=== PATIENT | male | born 2000 | race Caucasian/White ===

== ENCOUNTER 2024-11-21 15:35 | Inpatient (IN) ==
[2024-11-21 16:09] LABS: Basophils # (auto) 0.05 K/uL (0.00-0.20); Basophils % (auto) 0.5 %; Eosinophils # (auto) 0.01 K/uL (0.00-0.50); Eosinophils % (auto) 0.1 %; Hematocrit (blood only) 42.8 % (42.0-52.0); Hemoglobin 15.1 g/dl (14.0-18.0); Immature Granulocytes # (auto) 0.22 K/uL (0.01-0.20); Immature Granulocytes % (auto) 2.1 %; Lymphocytes # (auto) 2.71 K/uL (1.20-3.40); Lymphocytes % (auto) 25.3 %; Mean Corpuscular Hemoglobin 30.2 pg (25.0-34.0); Mean Corpuscular Hgb Conc 35.3 g/dL (32.0-36.0); Mean Corpuscular Volume 85.6 fL (80.0-100.0); Mean Platelet Volume 8.4 fL (9.4-12.4); Monocytes # (auto) 0.71 K/uL (0.11-0.59); Monocytes % (auto) 6.6 %; Neutrophils # (auto) 7.02 K/uL (1.40-6.50); Neutrophils % (auto) 65.4 %; Platelet Count 341 K/uL (130-400); RDW Coefficient of Variation 12.1 % (11.5-14.5); RDW Standard Deviation 38.1 fL (36.4-46.3); White Blood Count 10.72 K/ul (4.8-10.8)
[2024-11-21 16:25] LABS: Albumin Globulin Ratio 1.8 (0.9-2); Albumin Level 4.3 gm/dl (3.4-5.0); BUN Creatinine Ratio 11.6 (10-20); Bilirubin,Total 0.6 mg/dl (0.2-1.0); Creatinine Clr Calc Pharmacy 125.5 ml/min; Globulin 2.4 gm/dl (2.5-4.0); Potassium 3.8 mmol/L (3.5-5.1); Total Protein 6.7 gm/dl (6.0-8.3)
[2024-11-21] MEDS: SODIUM CHLORIDE 0.9% 1,000 ML IV ONE ×2 (16:34→18:54)
--- NOTE | 2024-11-21 16:37 | XRay Report ---
Clinical History: Fever Technique: 2 frontal views of the chest were obtained Findings: There are no confluent pulmonary infiltrates. The heart size is within normal limits. No pleural effusion or pneumothorax is seen. There is no definite pulmonary nodule. No fracture is noted. No foreign body is seen Impression: No active disease Electronically signed by Rock Hodges 11-21-2024 4:37 PM
--- NOTE | 2024-11-21 17:00 | Emergency Department Note ---
Impression & Plan Fever, Headache, Bicuspid aortic valve, Elevated liver enzymes ED Provider Note NAME: ROCK MENDENHALL AGE: 23 SEX: M : 2000 ARRIVES VIA: Walk-In INFORMANT: [Patient] ED PROVIDER(S): [Catalino Vines MD] CHIEF COMPLAINT: Flulike symptoms, headache HISTORY OF PRESENT ILLNESS: The patient is a 23-year-old male with a bicuspid aortic valve who presents to the ER with fever for 10 days. He also complains of a headache that is worse with position change. He has not had cough or congestion or shortness of breath. No sore throat. No urinary complaints. No vomiting diarrhea. No tick bites. Patient has already had strep testing, COVID, flu, RSV testing, Lyme testing, it is all returned negative. The patient presents with ongoing symptoms. He took Tylenol about 2 hours ago. PMHx/PSHx/Social Hx: See Below PHYSICAL EXAM: GENERAL: Patient is in no acute distress. HEENT: No acute trauma, normocephalic atraumatic, mucous membranes moist, no nasal congestion. No throat erythema or exudate. NECK: No stridor, no adenopathy, no meningismus, trachea is midline. LUNGS: Clear to auscultation bilaterally, no wheeze, no rhonchi, breath sounds equal. HEART: Mildly tachycardic, subtle systolic murmur, regular rhythm. ABDOMEN: Soft, nontender, no peritonitis. EXTREMITIES: No cyanosis, full range of motion of all the joints without pain or difficulty. NEUROLOGIC: Oriented x 3, no acute motor or sensory deficits, no focal weakness. SKIN: No jaundice, no diaphoresis. DIFFERENTIAL DIAGNOSIS: Meningitis, viral illness, Lyme disease, tickborne disease, pneumonia, bacteremia, endocarditis, among others. EMERGENCY DEPARTMENT PROCEDURES: Lumbar puncture: This procedure was performed by me. Risks and benefits of the procedure were discussed. Patient was placed seated on the stretcher. Lumbar landmarks were identified. Betadine was used for prep. Sterile drapes were applied. Using sterile technique, lidocaine was used to anesthetize the lumbar area. Using sterile technique, I attempted to access the spinal canal with a 20-gauge spinal needle. There were no complications. Patient tolerated the procedure well. Unfortunately, no fluid was obtained, the tap was dry. MEDICAL DECISION MAKING: There is no leukocytosis or concerning anemia. There is a normal platelet count. There is a bandemia present on the CBC differential. Sed rate was normal at 7. There was no electrolyte abnormality or renal failure. Lactic acid level was not elevated making severe sepsis unlikely. There were a few subtle liver enzyme elevations, the bilirubin was normal. Procalcitonin level was not elevated making serious bacterial infection less likely. Respiratory bio fire was positive for rhinovirus. Babesia and anaplasmosis screens were negative. Lyme disease testing was negative. Send out tick testing is pending. Ulster testing was negative. Brain CT showed no acute bleed or mass effect. Some chronic sinusitis was noted on CT imaging. Chest x-ray does not show pneumonia or CHF. On exam, the patient did not have meningismus but did complain of a headache with any movement. He was febrile. He did not seem toxic. I did attempt a lumbar puncture as noted above, I was unfortunately, unsuccessful. The patient received IV saline, 2 L. He was given IV Zofran, he received a second dose of IV Zofran as he became nauseated during the lumbar puncture. He received IV morphine for pain, he was given IV Ativan to help with relaxation for the lumbar puncture. He was given IV ceftriaxone as empiric antibiotic therapy. The patient presents with 10 days of fever. He has had several visits to providers already and no true diagnosis has been made. Unfortunately, I was unable to obtain spinal fluid to help with the diagnosis of potential meningitis. For now, given the circumstances, I do think a hospital stay is warranted. Observation, further workup, a lumbar puncture under fluoroscopy tomorrow could be performed. I did speak with the patient, I spoke with his parents. I did talk with the case management. The on-call hospitalist was consulted. Prior/Outside records/notes reviewed: None Imaging/x-ray results per my interpretation: Chest x-ray does not show pneumonia or CHF. Chronic Medical/Social conditions affecting care: None Care/Management discussed with: Case management, the on-call hospitalist. I did speak with the parents at bedside. Level of care consideration(s): After review of the information above and other included data: --I believe the patient requires escalation of care to admission DISPOSITION: Admission Past Med/Surg History Problem List Elevated liver enzymes (Acute) Bicuspid aortic valve (Acute) Headache (Acute) Fever (Acute) Medical History Bicuspid aortic valve SVT (supraventricular tachycardia) Social History Smoking Status: Never smoker Preferred Language: Norwegian Feels Safe at Home: Yes Allergies Allergies Allergy/AdvReac Type Severity Reaction Status Date / Time No Known Allergies Allergy Unverified 11/21/24 10:32 Home Meds Previous Rx's Medication Instructions Recorded amoxicillin 875 mg tablet 875 mg PO BID 10 days #20 tabs 11/21/24 Results & Data (ED) Vital Signs Vital Signs - 24 hr 11/21/24 15:38 11/21/24 16:01 11/21/24 16:07 Temperature 38.3 C H Temperature Source Temporal Artery Scan Pulse Rate 104 H 87 Pulse Rate [Left Apical] Respiratory Rate 20 Respiratory Effort / Characteristics Non-Labored Spontaneous Respiratory Depth Normal Respiratory Pattern Regular Blood Pressure 123/69 119/74 Blood Pressure [Left Arm] Blood Pressure Mean 87 89 Blood Pressure Mean [Left Arm] Blood Pressure Position Sitting Pulse Oximetry 98 Oxygen Delivery Method Room Air Sepsis Recent Fever Within 48 Hours Yes Sepsis New/Unexplained Change in Mental Status N/A Sepsis Action Taken by Nursing No Action Required 11/21/24 16:30 11/21/24 16:45 11/21/24 17:00 Temperature Temperature Source Pulse Rate 84 74 Pulse Rate [Left Apical] Respiratory Rate 18 25 H Respiratory Effort / Characteristics Respiratory Depth Respiratory Pattern Blood Pressure 102/61 Blood Pressure [Left Arm] Blood Pressure Mean 77 Blood Pressure Mean [Left Arm] Blood Pressure Position Pulse Oximetry 96 98 Oxygen Delivery Method Room Air Room Air Sepsis Recent Fever Within 48 Hours Sepsis New/Unexplained Change in Mental Status Sepsis Action Taken by Nursing 11/21/24 17:09 11/21/24 17:13 11/21/24 17:15 Temperature Temperature Source Pulse Rate 82 90 Pulse Rate [Left Apical] Respiratory Rate 22 Respiratory Effort / Characteristics Respiratory Depth Respiratory Pattern Blood Pressure 96/77 L Blood Pressure [Left Arm] Blood Pressure Mean 85 Blood Pressure Mean [Left Arm] Blood Pressure Position Pulse Oximetry 98 98 Oxygen Delivery Method Room Air Room Air Sepsis Recent Fever Within 48 Hours Sepsis New/Unexplained Change in Mental Status Sepsis Action Taken by Nursing 11/21/24 17:36 11/21/24 17:45 11/21/24 17:57 Temperature Temperature Source Pulse Rate 72 71 74 Pulse Rate [Left Apical] Respiratory Rate 21 25 H 22 Respiratory Effort / Characteristics Respiratory Depth Respiratory Pattern Blood Pressure Blood Pressure [Left Arm] Blood Pressure Mean Blood Pressure Mean [Left Arm] Blood Pressure Position Pulse Oximetry 98 96 97 Oxygen Delivery Method Room Air Room Air Room Air Sepsis Recent Fever Within 48 Hours Sepsis New/Unexplained Change in Mental Status Sepsis Action Taken by Nursing 11/21/24 18:00 11/21/24 18:12 11/21/24 18:21 Temperature Temperature Source Pulse Rate 57 L 92 H Pulse Rate [Left Apical] Respiratory Rate 23 21 Respiratory Effort / Characteristics Respiratory Depth Respiratory Pattern Blood Pressure 120/60 Blood Pressure [Left Arm] Blood Pressure Mean 74 Blood Pressure Mean [Left Arm] Blood Pressure Position Pulse Oximetry 96 98 Oxygen Delivery Method Room Air Room Air Sepsis Recent Fever Within 48 Hours Sepsis New/Unexplained Change in Mental Status Sepsis Action Taken by Nursing 11/21/24 18:39 11/21/24 18:45 11/21/24 19:09 Temperature Temperature Source Pulse Rate 71 81 Pulse Rate [Left Apical] 60 Respiratory Rate 17 22 20 Respiratory Effort / Characteristics Non-Labored Spontaneous Respiratory Depth Normal Respiratory Pattern Regular Blood Pressure Blood Pressure [Left Arm] 115/66 Blood Pressure Mean Blood Pressure Mean [Left Arm] 82 Blood Pressure Position Pulse Oximetry 98 97 99 Oxygen Delivery Method Room Air Room Air Room Air Sepsis Recent Fever Within 48 Hours Sepsis New/Unexplained Change in Mental Status Sepsis Action Taken by Nursing 11/21/24 19:12 11/21/24 19:24 11/21/24 19:36 Temperature Temperature Source Pulse Rate 62 71 70 Pulse Rate [Left Apical] Respiratory Rate 23 24 17 Respiratory Effort / Characteristics Respiratory Depth Respiratory Pattern Blood Pressure Blood Pressure [Left Arm] Blood Pressure Mean Blood Pressure Mean [Left Arm] Blood Pressure Position Pulse Oximetry 96 99 99 Oxygen Delivery Method Room Air Room Air Room Air Sepsis Recent Fever Within 48 Hours Sepsis New/Unexplained Change in Mental Status Sepsis Action Taken by Nursing 11/21/24 19:55 11/21/24 20:00 11/21/24 20:35 Temperature 39.0 C H Temperature Source Oral Pulse Rate 85 74 Pulse Rate [Left Apical] Respiratory Rate 22 Respiratory Effort / Characteristics Respiratory Depth Respiratory Pattern Blood Pressure 124/82 Blood Pressure [Left Arm] Blood Pressure Mean 96 Blood Pressure Mean [Left Arm] Blood Pressure Position Pulse Oximetry 98 Oxygen Delivery Method Room Air Sepsis Recent Fever Within 48 Hours Sepsis New/Unexplained Change in Mental Status Sepsis Action Taken by [facility]irement Medications Current Medication List: was personally reviewed by me Laboratory Data Attestation: I reviewed the patient's lab results. 11/21/24 15:51 11/21/24 15:51 Lab Results 11/21/24 11/21/24 11/21/24 Range/Units 15:51 16:35 16:45 WBC 10.72 (4.8-10.8) K/ul RBC 5.00 (4.70-6.10) M/uL Hgb 15.1 (14.0-18.0) g/dl Hct 42.8 (42.0-52.0) % MCV 85.6 (80.0-100.0) fL MCH 30.2 (25.0-34.0) pg MCHC 35.3 (32.0-36.0) g/dL RDW Std Deviation 38.1 (36.4-46.3) fL RDW Coeff of Romie 12.1 (11.5-14.5) % Plt Count 341 (130-400) K/uL MPV 8.4 L (9.4-12.4) fL Immature Gran % (Auto) 2.1 % Neut % (Auto) 65.4 % Lymph % (Auto) 25.3 % Ulster % (Auto) 6.6 % Eos % (Auto) 0.1 % Baso % (Auto) 0.5 % Neut # (Auto) 7.02 H (1.40-6.50) K/uL Lymph # (Auto) 2.71 (1.20-3.40) K/uL Ulster # (Auto) 0.71 H (0.11-0.59) K/uL Eos # (Auto) 0.01 (0.00-0.50) K/uL Baso # (Auto) 0.05 (0.00-0.20) K/uL Immature Gran # (Auto) 0.22 H (0.01-0.20) K/uL ESR 7 (0-15) mm/hr Sodium 138 (136-145) mmol/L Potassium 3.8 (3.5-5.1) mmol/L Chloride 104 (98-107) mmol/L Carbon Dioxide 28 (21-32) mmol/L Anion Gap 6 (3-11) BUN 13 (6-23) mg/dl Creatinine 1.12 (0.6-1.4) mg/dl Est Cr Clr Drug Dosing 125.5 ml/min eGFR 95.26 BUN/Creatinine Ratio 11.6 (10-20) Glucose 99 (70-99(Fasting)) mg/dl Lactate 1.5 (0.4-2.0) mmol/L Calcium 9.0 (8.6-10.3) mg/dl Total Bilirubin 0.6 (0.2-1.0) mg/dl AST 47 H (13-39) U/L ALT 59 H (7-52) U/L Alkaline Phosphatase 50 (34-104) U/L Total Protein 6.7 (6.0-8.3) gm/dl Albumin 4.3 (3.4-5.0) gm/dl Globulin 2.4 L (2.5-4.0) gm/dl Albumin/Globulin Ratio 1.8 (0.9-2) Procalcitonin < 0.02 (0-0.5) ng/ml Adenovirus (PCR) Not Detected (NotDetected) Anaplasma Smear See Comment Babesia Smear See Comment B. pertussis DNA (PCR) Not Detected (NotDetected) B.parapertussis DNA PCR Not Detected (NotDetected) Lyme Disease Screen Negative (Negative) C. pneumoniae DNA (PCR) Not Detected (NotDetected) Coronavirus OC43 (PCR) Not Detected (NotDetected) Coronavirus HKU1 (PCR) Not Detected (NotDetected) Coronavirus 229E (PCR) Not Detected (NotDetected) SARS-CoV-2 (PCR) Not Detected (NotDetected) Coronavirus NL63 (PCR) Not Detected (NotDetected) Monoscreen Negative (Negative) Human Metapneumovir PCR Not Detected (NotDetected) Influenza Type A (PCR) Not Detected (NotDetected) Influenza Type B (PCR) Not Detected (NotDetected) M. pneumoniae (PCR) Not Detected (NotDetected) Parainfluenza 1 (PCR) Not Detected (NotDetected) Parainfluenza 2 (PCR) Not Detected (NotDetected) Parainfluenza 3 (PCR) Not Detected (NotDetected) Parainfluenza 4 (PCR) Not Detected (NotDetected) RSV (PCR) Not Detected (NotDetected) Entero/Rhino (PCR) DETECTED A (NotDetected) Administered Medications Discontinued Medications Dexamethasone (Dexamethasone Sod Inj 4 Mg/Ml Vial) 10 mg IV NOW STA Stop: 11/21/24 20:30 Last Admin: 11/21/24 20:53 Dose: 10 mg Documented By: JAGDISH Sodium Chloride (Nss) 1,000 mls @ 999 mls/hr IV .Q1H1M ONE Stop: 11/21/24 17:24 Last Infusion: 11/21/24 18:00 Dose: Infused Documented By: Admin: 11/21/24 16:34 Dose: 999 mls/hr Documented By: LIZBETH Sodium Chloride (Nss) 1,000 mls @ 999 mls/hr IV .Q1H1M ONE Stop: 11/21/24 19:51 Last Infusion: 11/21/24 20:01 Dose: Infused Documented By: Admin: 11/21/24 18:54 Dose: 999 mls/hr Documented By: AVANI Ceftriaxone Sodium (Rocephin) 2,000 mg in 50 mls @ 100 mls/hr IV NOW STA Stop: 11/21/24 19:20 Last Infusion: 11/21/24 19:40 Dose: Infused Documented By: Admin: 11/21/24 19:05 Dose: 100 mls/hr Documented By: AVANI Lidocaine HCl (Lidocaine 1% Local 20 Ml Vial) 20 ml INFIL NOW ONE Stop: 11/21/24 17:01 Last Admin: 11/21/24 18:52 Dose: 20 ml Documented By: CARLIE Lorazepam (Lorazepam 2 Mg/1 Ml Vial) 0.5 mg IV NOW STA Stop: 11/21/24 16:59 Last Admin: 11/21/24 18:16 Dose: 0.5 mg Documented By: SONI Morphine Sulfate (Morphine Sulfate 4 Mg/Ml 1 Ml Carp\Vial) 4 mg IV NOW STA Stop: 11/21/24 16:59 Last Admin: 11/21/24 17:32 Dose: 4 mg Documented By: LIZBETH Ondansetron HCl (Ondansetron Inj 2 Mg/Ml 2 Ml Vial) 4 mg IV NOW STA Stop: 11/21/24 16:59 Last Admin: 11/21/24 17:33 Dose: 4 mg Documented By: LIZBETH Ondansetron HCl (Ondansetron Inj 2 Mg/Ml 2 Ml Vial) 4 mg IV NOW STA Stop: 11/21/24 18:57 Last Admin: 11/21/24 19:05 Dose: 4 mg Documented By: [facility] Imaging Data Radiologist's Impression: Chest X-Ray 11/21/24 15:43 Clinical History: Fever Technique: 2 frontal views of the chest were obtained Findings: There are no confluent pulmonary infiltrates. The heart size is within normal limits. No pleural effusion or pneumothorax is seen. There is no definite pulmonary nodule. No fracture is noted. No foreign body is seen Impression: No active disease Electronically signed by Rock Hodges 11-21-2024 4:[address] 11/21/24 16:58 Clinical History: Headache. Technique: Axial computed tomography images were obtained of the brain from the vertex to the skull base without intravenous contrast. Findings: There is no sign of intracranial hemorrhage. There is normal antony-white matter differentiation with no sign of acute or old infarction. No midline shift or other form of herniation is identified. There is no hydrocephalus. No obvious mass lesion is seen on this noncontrast examination. There is a mucus retention cyst in the right maxillary sinus. The mastoid air cells appear clear Impression: 1. Normal-appearing brain 2. Chronic sinusitis Electronically signed by Rock Hodges 11-21-2024 5:40 PM Discharge Plan Visit Data Chief Complaint: Flu Like Symptoms Stated Complaint: FEVER, HEADACHES ED Provider: Catalino Vines Discharge Problem: Fever, Headache, Bicuspid aortic valve, Elevated liver enzymes Patient Disposition: Admitted As Inpatient Condition: Fair Forms Stand Alone Forms: [facility], Important Visit Information Prescriptions Prescriptions: No Action amoxicillin 875 mg tablet 875 mg PO BID 10 Days Qty: 20 0RF Referrals [facility]errals: [facility] [Primary Care Provider] - Discharge Problem: Fever Qualifiers: Fever type: unspecified Qualified Code(s): R50.9 - Fever, unspecified Headache Qualifiers: Headache type: unspecified Headache chronicity pattern: acute headache I ntractability: intractable Qualified Code(s): R51.9 - Headache, unspecified
[2024-11-21] MEDS: MoRPHine SULFATE 4 MG/ML 1 ML CARP\\VIAL IV STA (17:32)
[2024-11-21] MEDS: ONDANSETRON INJ 2 MG/ML 2 ML VIAL IV STA ×2 (17:33→19:05)
--- NOTE | 2024-11-21 17:40 | CT Scan Report ---
Clinical History: Headache. Technique: Axial computed tomography images were obtained of the brain from the vertex to the skull base without intravenous contrast. Findings: There is no sign of intracranial hemorrhage. There is normal antony-white matter differentiation with no sign of acute or old infarction. No midline shift or other form of herniation is identified. There is no hydrocephalus. No obvious mass lesion is seen on this noncontrast examination. There is a mucus retention cyst in the right maxillary sinus. The mastoid air cells appear clear Impression: 1. Normal-appearing brain 2. Chronic sinusitis Electronically signed by Rock Hodges 11-21-2024 5:40 PM
[2024-11-21 17:49] LABS: Adenovirus PCR Not Detected (NotDetected); Bordetella parapertussis PCR Not Detected (NotDetected); Bordetella pertussis PCR Not Detected (NotDetected); Chlamydia pneumoniae PCR Not Detected (NotDetected); Coronavirus 229E PCR Not Detected (NotDetected); Coronavirus CoV-2 (COVID19)PCR Not Detected (NotDetected); Coronavirus HKU1 PCR Not Detected (NotDetected); Coronavirus NL63 PCR Not Detected (NotDetected); Coronavirus OC43PCR Not Detected (NotDetected); Human Metapneumovirus PCR Not Detected (NotDetected); Influenza A PCR Not Detected (NotDetected); Influenza B PCR Not Detected (NotDetected); Mycoplasma pneumoniae PCR Not Detected (NotDetected); Parainfluenza Virus 1 PCR Not Detected (NotDetected); Parainfluenza Virus 2 PCR Not Detected (NotDetected); Parainfluenza Virus 3 PCR Not Detected (NotDetected); Parainfluenza Virus 4 PCR Not Detected (NotDetected); Respiratory Syncytial VirusPCR Not Detected (NotDetected); Rhinovirus/Enterovirus PCR DETECTED (NotDetected)
[2024-11-21] MEDS: LORazepam 2 MG/1 ML VIAL IV STA (18:16)
[2024-11-21] MEDS: LIDOCAINE 1% LOCAL 20 ML VIAL INFIL ONE (18:52)
[2024-11-21] MEDS: cefTRIAXone SODIUM 2,000 MG/50 ML BAG IV STA (19:05)
[2024-11-21] MEDS ORDERED: POLYETHYLENE (MIRALAX) 17 GM PACK PO PRN (20:04)
[2024-11-21] MEDS ORDERED: ONDANSETRON INJ 2 MG/ML 2 ML VIAL IV PRN (20:04)
[2024-11-21] MEDS ORDERED: MELATONIN 3 MG TAB PO PRN (20:09)
[2024-11-21] MEDS ORDERED: VANCOMYCIN CONSULT ACTIVE PRN ×2 (20:29→21:56)
--- NOTE | 2024-11-21 20:38 | History & Physical Report ---
Date of Service November 21, 2024 Assessment & Plan (1) Headache: (2) Fever: (3) Rhinovirus: Plan 23 yo with h/o severe headaches and fever for 10 days, admitted to R/O meningitis after failed multiple LP attempts in ED. Clinically no s/o meningism,lab and imaging benign, however long history and persistent sx, worsened severe headaches on position change, and no downtrending sx warrant evaluation for meningitis. Hence admitted for IR guided LP and is under empiric antibiotics regimen now. No h.o recurrent infections in past rules out immunocompromised status clinically. #Fever and Severe BARNES *Possible meningitis - Sx for > 10 days now. - D/D: URI vs Sinusitis vs Meningitis vs lyme's - Clinically non toxic appearing, atypical for meningitis but can't r/o w/o LP. - No active URI sx from beginning of illness- hard to tell how much rhino virus has contributed. - No Other systemic symptoms to specify other D/Ds. - No h/o recurrent infection in past - Labs: CBC unremarkable Elevated neutrophils, monocytes, immature granulocytes borderline; could be 2/2 infection Procal: Negative LFT: Mildly out of range, can follow AM. [place]: negative RFT: WNL. Blood CS sent from ED. - Lyme: negative - Anaplasma, Babesia: Awaited - Imaging: Chest XR: Unremarkable CT head: No acute findings, Chronic sinusitis. Plan: Admit in med/surg Tele for observation IR guided diagnostic LP ordered for tomorrow. CSF analysis for: Cell count, glucose level, cytology, lyme, LDH, protein ordered. Empiric Abx: Ceftriaxone 2gm BID, Vancomycin 15 mg/ kg Q8 hr, Dexamethasone 10 mg Q6 hr/ Acyclovir Q 8H started. Would continue vanco/ dexa until meningitis is ruled out. Continuation of ceftriaxone is reasonable as Lyme's is another potential D/D and could present with false neg lyme's test. #Rhinovirus positive status - Incidental finding of Rhino virus positive status on Biofire. - Does not endorse active URi Sx. - Hard to tell how much rhino virus has contributed to his Headaches and fever. - Sx > 10 days supports Antibiotics need. - Otherwise symptomatic treatment. - Maintain hydration/ Tylenol/ Toradol for headache. Other chronic issues: 1. Bicuspid aortic valve: congenital, no s/o heart failure. Continue f.u with cardiology in outpatient. 2. H/O SVT: S/P ablation procedure in 2017, no recurrent Sx. Dispo: Admit in med/ surg Tele. DVT prophylaxis: Not indicated Code Status: Full. No IVF History of Present Illness Chief Complaint: Fever and BARNES for 10 days Primary Care Provider: [facility] Puneet is 23 yo healthy male with h/o Bicuspid aortic valve, SVTs S/P ablation done on 2016. He presented with severe headaches for few days, initially started with high grade fevers 10 days back. Initial 3 days, he did have fever only, max recorded 104 with no headaches, no URI Sx, No urine sx, no GI sx. Afterwards started having headaches, quite severe, throbbing type, more severe when he stands and changes position, but not when he rotates his head. He had visited family at [place] last Thursday, when he had severe headache, warranting him to go to urgent care. Migraine cocktail given there helped his headaches but he was suggested to take Tylenol at home, which did not help. Went to ED again on Thursday( 2 days back )-- blood works done-- revealed nothing. Lyme and viral panels were done, which was negative. This afternoon, he again had very severe headache, especially when he stands, not relieved at all with regular Tylenol, hence went to urgent care. They gave him Augmentin 1 dose and recommended discharge, however Puneet decided to visit our ED as HAs were very severe. Endorses h/o migraine in past, but headache were in frontal region. No regular or prophylactic medicine for migraine. No premonitory sx like nausea, blurring of vision in previous headache episodes and severity was very mild compared to current BARNES. No rashes anywhere, no joint pain, no vomiting, no blurring of vision. No h/o STDs, sexually active with single partner, No h/o use of Viagra. No h/o use of ointment for fissure. No h.o travel except from [place]. No known sick contact. After coming to ED, vitals were stable, with labs benign as well. CT head is unrevealing, Lumbar puncture was tried multiple times with failed attempts, hence Ceftriaxone was given STAT dose and our team was consulted. PMH: reviewed Drug and allergy : reviewed Code : Full Allergies Allergy/AdvReac Type Severity Reaction Status Date / Time No Known Allergies Allergy Unverified 11/21/24 10:32 Home Medications Medication Instructions Recorded Confirmed Type amoxicillin 875 mg tablet 875 mg PO BID 10 days #20 tabs 11/21/24 11/21/24 Rx Past Med/Surg History Problem List (Updated 11/21/24 @ 21:26 by Trudi Brewer MD) Rhinovirus Elevated liver enzymes (Acute) Bicuspid aortic valve (Acute) Headache (Acute) Fever (Acute) Medical History Bicuspid aortic valve SVT (supraventricular tachycardia) Social History Smoking Status: Never smoker Tobacco Type: Smokeless Tobacco (Dip or Chew) Cigarettes Per Day: Zyn pouches; Hx Alcohol Use: Yes Alcohol type: beer Hx Substance Use: No Preferred Language: Venezuelan Coning Machine Operator Required: No Beliefs That Will Affect Care: None Current Living Situation: Other Current Living Situation Comment: [place] apartment [place] roommates Feels Safe at Home: Yes Safety Concerns: Feels Safe At This Time Assistive Devices: Glasses Review of Systems Constitutional: no malaise Eyes: + loss of peripheral vision and + tunnel vision; no blind spots, no diplopia, no eye pain, no photophobia and no worsening vision Ear, Nose, Mouth, Throat: no ear pain, no ear discharge, no nasal congestion, no nasal obstruction and no dysphagia Respiratory: no cough, no chest congestion, no dyspnea, no dyspnea on exertion and no pain on inspiration Cardiovascular: no chest pain, no chest pain with activity, no dyspnea, no orthopnea and no palpitations Gastrointestinal: no abdominal pain, no bloating and no vomiting Genitourinary: no dysuria, no difficulty urinating, no urinary hesitancy, no penile discharge or no urinary urgency Musculoskeletal: no neck pain, no stiffness, no muscle weakness and no body aches Integumentary: no rash, no lesions and no unusual bruising Neurologic: no gait abnormality, no unsteadiness and no paresthesia Psychiatric: no behavioral changes Allergy / Immunological: + seasonal rhinorrhea Physical Exam Physical Exam: Constitutional: Well appearing, No acute distress, PILCCOD: Negative HEENT: Atraumatic, Normocephalic, No conjunctival injection CVS: S1 S2 no murmur, Regular Rhythm, no LE edema Respiratory: BL equal air entry with NVBS. No rhonchi, wheezes, or crackles. No increased work of breathing GI: Soft, Nondistended, Nontender, Normal Bowel sounds + MSK: No gross deformities noted Skin: Warm, Dry, No rashes Neuro: Alert, Oriented to TPP, No s/o Meningism, Neck movement not painful/ not stiff, Negative Kernig's and Brudzinski, No Focal deficit Psych: Mood and Affect congruent, Cooperative on exam Results & Data Results & Data Vital Signs (Past 12 Hours) Vital Signs Temp Pulse Pulse Resp BP BP Pulse Ox 11/21/24 20:00 74 22 124/82 98 11/21/24 19:55 85 11/21/24 19:36 70 17 99 11/21/24 19:24 71 24 99 11/21/24 19:12 62 23 96 11/21/24 19:09 60 20 115/66 99 11/21/24 18:45 81 22 97 11/21/24 18:39 71 17 98 11/21/24 18:21 92 H 21 98 11/21/24 18:12 57 L 23 96 11/21/24 18:00 120/60 11/21/24 17:57 74 22 97 11/21/24 17:45 71 25 H 96 11/21/24 17:36 72 21 98 11/21/24 17:15 90 98 11/21/24 17:13 96/77 L 11/21/24 17:09 82 22 98 11/21/24 17:00 74 25 H 98 11/21/24 16:45 84 18 96 11/21/24 16:30 102/61 11/21/24 16:07 87 11/21/24 16:01 119/74 11/21/24 15:38 38.3 C H 104 H 20 123/69 98 O2 Del Method 11/21/24 20:00 Room Air 11/21/24 19:55 11/21/24 19:36 Room Air 11/21/24 19:24 Room Air 11/21/24 19:12 Room Air 11/21/24 19:09 Room Air 11/21/24 18:45 Room Air 11/21/24 18:39 Room Air 11/21/24 18:21 Room Air 11/21/24 18:12 Room Air 11/21/24 18:00 11/21/24 17:57 Room Air 11/21/24 17:45 Room Air 11/21/24 17:36 Room Air 11/21/24 17:15 Room Air 11/21/24 17:13 11/21/24 17:09 Room Air 11/21/24 17:00 Room Air 11/21/24 16:45 Room Air 11/21/24 16:30 11/21/24 16:07 11/21/24 16:01 11/21/24 15:38 Room Air Code Status & VTE Plan VTE Prophylaxis Plan VTE Prophylaxis will be ordered: No Reason for no VTE drug order: Treatment not indicated Supervising Physician Co-Signing Physician Notes I personally saw and examined the patient. I independently reviewed the labs, EKG, imaging, problem list, medication list, past medical history and family history. I verified all singer points and agree with resident physician Dr Melissa Brewer MD with the following exceptions and/or additions: 24 year old male presents to the ER with rigors and headache for 10 days, with subjective fever (max 104 degrees Fahrenheit) for 7 days. No change in mentation. Very weak. No urinary symptoms. O/E A&Ox3, acitvely having rigors, HS RRR, no murmurs, Chest CTAB, Abdo SNT, 5/5 power b/l extremities with normal sensation, CN 2-> 12 intact A/P Fever / rigors - unknown cause but given headache with fever even without nuchal rigidity meningitis is being considered as duration and severity appears beyond that of RSV. Unfortunately unable to obtain LP in the ER despite multiple attempts and will be done under fluro tomorrow. Normal CXR. UA pending collection. Monitor LFTs with AM labs, will also add CK to check for rhabdo. Resident Activity Tracking Resident Involvement: Resident Care Provided Care Provided: Adult Hospital Medicine (1) Headache Headache chronicity pattern: acute headache Headache type: unspecified Intractability: intractable Qualified Code(s): R51.9 - Headache, unspecified (2) Fever Fever type: unspecified Qualified Code(s): R50.9 - Fever, unspecified
[2024-11-21] MEDS: DEXAMETHASONE SOD INJ 4 MG/ML VIAL IV STA (20:53)
[2024-11-21] MEDS: FAMOTIDINE 20MG/5ML IV PUSH IV ONE (21:12)
[2024-11-21] MEDS: FAMOTIDINE 20MG IV PUSH 20 MG/5 ML SYR IV STA (21:20)
[2024-11-21] MEDS ORDERED: DEXAMETHASONE SOD INJ 4 MG/ML VIAL IV SCH (21:56)
[2024-11-21] MEDS: VANCOMYCIN HCL 2,000 MG in SODIUM CHLORIDE 0.9% 500 ML IV ONE (22:12)
[2024-11-21] MEDS: ACYCLOVIR SOD 850 MG in DEXTROSE 5% 250 ML IV STA (22:15)
[2024-11-21] MEDS: KETOROLAC TROMETHAMINE 15 MG/ML VIAL IV PRN (22:48)
[2024-11-21] MEDS: ACETAMINOPHEN 500 MG TAB PO PRN (23:31)
[2024-11-22] MEDS: dexAMETHasone 10 MG in SYRINGE 0 ML IV SCH (03:10)
--- NOTE | 2024-11-22 04:51 | Billing Data ---
Date of Service November 21, 2024 Coding Level of Care Code 67974 INT INP/OBS CARE
[2024-11-22] MEDS: VANCOMYCIN HCL 1,250 MG in SODIUM CHLORIDE 0.9% 250 ML IV SCH (04:56)
[2024-11-22] MEDS: ACYCLOVIR SOD 850 MG in DEXTROSE 5% 250 ML IV SCH (04:56)
[2024-11-22 06:24] LABS: Basophils # (auto) 0.02 K/uL (0.00-0.20); Basophils % (auto) 0.3 %; Hematocrit (blood only) 39.1 % (42.0-52.0); Hemoglobin 13.7 g/dl (14.0-18.0); Immature Granulocytes # (auto) 0.16 K/uL (0.01-0.20); Immature Granulocytes % (auto) 2.2 %; Lymphocytes % (auto) 12.2 %; Mean Corpuscular Hemoglobin 30.2 pg (25.0-34.0); Mean Corpuscular Volume 86.1 fL (80.0-100.0); Mean Platelet Volume 8.6 fL (9.4-12.4); Monocytes # (auto) 0.11 K/uL (0.11-0.59); Monocytes % (auto) 1.5 %; Neutrophils % (auto) 83.8 %; Platelet Count 274 K/uL (130-400); RDW Coefficient of Variation 11.9 % (11.5-14.5); RDW Standard Deviation 37.7 fL (36.4-46.3); Red Blood Count 4.54 M/uL (4.70-6.10); White Blood Count 7.39 K/ul (4.8-10.8)
[2024-11-22] MEDS: cefTRIAXone SODIUM 2,000 MG/50 ML BAG IV SCH (06:30)
[2024-11-22 06:42] LABS: Albumin Globulin Ratio 1.8 (0.9-2); Albumin Level 4.1 gm/dl (3.4-5.0); Bilirubin,Total 0.8 mg/dl (0.2-1.0); Calcium 8.9 mg/dl (8.6-10.3); Creatinine Clr Calc Pharmacy 140.4 ml/min; Globulin 2.3 gm/dl (2.5-4.0); Potassium 4.1 mmol/L (3.5-5.1); Total Protein 6.4 gm/dl (6.0-8.3)
[2024-11-22 06:50] LABS: INR 1.2 (0.9-1.1); Prothrombin Time 12.4 Seconds (9.0-12.0)
--- NOTE | 2024-11-22 07:07 | Hospitalist Progress Note ---
Date of Service November 22, 2024 Assessment & Plan (1) Rhinovirus: (2) Elevated liver enzymes: (3) Bicuspid aortic valve: (4) Headache: (5) Fever: Plan Puneet is 24 Y O with PMH of Migraine, Bicuspid Aortic Valve and h/o SVT presented to ER with severe headaches and fever for 10 days, admitted to R/O meningitis after failed multiple LP attempts in ED. #Viral meningitis -Patient presented to ED with fever and headache for 10 days - Labs: CBC unremarkable Elevated neutrophils CSF WBC:1395; glucose: slight elevated; Protein: slightly above normal; PCR positive for enterovirus Procal : Negative; Lactate normal [place]: negative CMP: Liver enzymes mild elevated UA: Negative Respiratory Biofire test positive for Rhinovirus Chest Xray: Normal findings CT head: No acute abnormalities, suggestive of chronic sinusitis Blood culture: pending lyme test: negative Anaplasma, babesia : Negative; PCR pending -Discontinue Dexamethasone -Continue Ceftriaxone and vancomycin. Will see the clinical picture tomorrow and if nothing concomitant comes out, may DC abx. #Rhinovirus positive status - Respiratory Biofire positive for rhinovirus - Denies URI symptoms. Continue supportive measures Other chronic issues: 1. Bicuspid aortic valve: congenital, no s/o heart failure. Continue f.u with cardiology in outpatient. 2. H/O SVT: S/P ablation procedure in 2017, no recurrent Sx. Dispo: Admit in med/ surg Tele. DVT prophylaxis: Not needed, Encourage ambulation Code Status: Full. Admission and Anticipated Discharge Date Admission Date: November 21, 2024 Supervising Physician Co-Signing Physician Notes I personally examined the patient and verified all singer points of history and exam, discussed case, and agree with decision making with Dr Osman Webster feeling a bit better. Updated about LP findings. Mother at the bedsidediscussed with her as well. Vitals noted, in general he is awake and alert pleasant no distress. Lying flat in bed. HEENT normocephalic atraumatic mucous membranes moist. Breathing unlabored no accessory muscle use good effort. Skin without rashes pallor or icterus, although he is mildly flushed. Neuro without focal deficits. Mental status shows him to have good recent and remote recall normal mood and affect good judgment and insight. Labs and diagnostics reviewed. Meningitishas a quite significant white count raising concern for bacterial, but this is countered by the fact that his glucose is high and protein is barely above upper limits of normal, combined with the fact that he has had this febrile illness for about 10 days. Obviously continue antibiotic coverage for now, await PCR and culture findings, but I strongly suspect this is likely viral meningitismostly because his presentation clinically fits with that better and I would be surprised to see someone be able to tolerate an active bacterial meningitis for a week and a half. Again, continue empiric antibiotics until further studies and appreciate ID inputespecially given the significant CSF pleocytosis. Answered all questions the best my ability, patient and mother expressed satisfaction with care. Subjective Overnight events: Had fever and was sweating a lot. Afebrile since 1 AM Ongoing symptoms: This morning he reports significant improvement/. Headache a lot better rating 3-4/10. Afebrile since 1 AM. Denies nausea/vomiting, burning micturition , runny nose, sorethroat and chest pain New concerns: No any Review of Systems Review of Systems: As per HPI Physical Exam Constitutional: WD/WN, vitals as above well developed; no acute distress Eyes: PERRL, conjunctivae normal, anicteric sclerae ENMT: external ear and nose normal, oropharynx normal Ears: no hearing impairment Neck: trachea midline, no thyromegaly (Kernigs sign negative, Brudzinski sign negative) Respiratory: normal respiratory effort, lungs clear to auscultation normal respiratory effort and + respiratory distress; no labored breathing and no retractions Auscultation: lungs clear to auscultation bilaterally Cardiovascular: RRR, no murmur, no edema Rate/Rhythm: regular rate and regular rhythm Chest (Breasts): normal inspection/palpation of breasts Chest: normal inspection of chest Results & Data Results & Data Vital Signs (Past 12 Hours) Vital Signs Temp Pulse Pulse Pulse Resp BP BP 11/22/24 01:01 37.6 C H 11/21/24 22:45 38.3 C H 83 16 11/21/24 21:17 80 18 11/21/24 21:03 86 25 H 11/21/24 21:01 133/74 11/21/24 20:57 96 H 21 11/21/24 20:54 68 27 H 11/21/24 20:35 39.0 C H 11/21/24 20:30 122/75 11/21/24 20:27 59 L 26 H 11/21/24 20:24 61 27 H 11/21/24 20:00 74 22 124/82 11/21/24 19:55 85 11/21/24 19:36 70 17 11/21/24 19:24 71 24 11/21/24 19:12 62 23 11/21/24 19:09 60 20 115/66 BP Pulse Ox O2 Del Method 11/22/24 01:01 11/21/24 22:45 147/80 H 96 Room Air 11/21/24 21:17 125/68 98 Room Air 11/21/24 21:03 11/21/24 21:01 11/21/24 20:57 99 Room Air 11/21/24 20:54 99 Room Air 11/21/24 20:35 11/21/24 20:30 11/21/24 20:27 97 Room Air 11/21/24 20:24 98 Room Air 11/21/24 20:00 98 Room Air 11/21/24 19:55 11/21/24 19:36 99 Room Air 11/21/24 19:24 99 Room Air 11/21/24 19:12 96 Room Air 11/21/24 19:09 99 Room Air (4) Headache Headache chronicity pattern: acute headache Headache type: unspecified Intractability: intractable Qualified Code(s): R51.9 - Headache, unspecified (5) Fever Fever type: unspecified Qualified Code(s): R50.9 - Fever, unspecified
--- NOTE | 2024-11-22 08:21 | Pharmacy Report ---
Pharmacy PK ABX Note - Date of Service November 22, 2024 - Assessment and Plan Assessment 24 year old M receiving vancomycin/ceftriaxone/acyclovir for treatment of possible meningitis vs lyme's vs URI . Pertinent microbiologic data includes: blood cultures pending Day # 1 of antimicrobial therapy. Plan Vancomycin * Loading dose: 2000 mg IV x 1 * Maintenance dose: 1250 mg IV every 8 hours * Regimen is predicted to achieve target AUC/ЕКАТЕРИНА of 400-600 mg/L.hr * Trough level ordered for: 11/22/24 @ 0530 Pharmacy will continue to follow and will adjust dose/frequency as necessary. Thank you. Pharmacy has transitioned to AUC monitoring for vancomycin. AUC/ЕКАТЕРИНА is the preferred PK/PD target and is associated with decreased risk of nephrotoxicity compared to traditional trough targets.
--- NOTE | 2024-11-22 09:01 | Infectious Disease Consult ---
Date of Consultation November 22, 2024 Assessment & Plan (1) Fever: (2) Headache: (3) Rhinovirus: Plan 24yo M with h/o migraines, bicuspid aortic valve, SVT s/p ablation in 2016 who presented on 11/21 with severe headaches and fever. He initially had high grade fevers 10 days ago with Tmax 104. Headaches started a few days prior reported as throbbing, more severe when he stands up and changes position. He had seen his family in [place] on 11/16 and went to urgent care due to the severe headache and then twice on 11/19. He was given a migraine cocktail that helped, negative workup including Lyme and viral panel. On day of presentation, he again had very severe headaches, especially when he stands so went to urgent care. He was given 1 dose of augemntin and discharged home however he decided to come to the ED. No rashes, joint pain, vomiting, blurred vision. Denied sick contacts. In the ED, he was febrile to 39, vss. Initial labs with WBC 10.72, Cr wnl. AST 47, Cr 59. ESR 7, PCT < 0.02. RPP +rhino/enterovirus. Anaplasma and babesia smear neg, PCR pending. Lyme negative. CXR neg. CTH with chronic sinusitis. BCX in process. He was started on vanc/CTX/ACV with decadron. Attempted LP in ED but multiple failed attempts and plans for LP with IR. ID consulted 11/22. Ongoing fevers since last week. He does not have any meningeal signs on examination and I think bacterial meningitis is lower on the ddx. Also does not have encephalopathy and encephalitis also does not fit in the current clinical picture. Can keep on current therapy until results from LP and BCX. He does not have any other clear exposures, including vector-borne illnesses. I am going to add HIV given sexual history. I will hold off on additional tick-borne studies since he doesnt have exposures. No lymphadenopathy or pharyngitis to suggest mono. # Fever # Headaches # Rhinovirus/Enterovirus infection - I ordered HIV screen - f/u LP agree with current orders including VDRL, WNV, ME panel - will keep on vancomycin, CTX, and ACV while waiting or LP and de-escalate accordingly - f/u blood cx Will continue to follow. If questions or concerns, contact via [facility] or Infectious Disease Call Center . Kika Aguilar MD [facility], Division of Infectious Diseases Consultation Information Consultation was provided via telemedicine using two-way real-time interactive telecommunication between the patient and the telemedicine provider. For the duration of the visit, the provider was performing the assessment from a different facility than the patient. This includesuse of bluetooth stethoscope forauscultationperformed by the telepresenter that the telemedicine provider can hear if described in the physical exam. [place] contact information: Please call [facility] Call Center . (Phone Number For Physician Use Only) After establishing a telemedicine visit, patient was: Patient was verified with two unique identifiers, Patient/authorized rep acknowledged consent and understanding and Gave permission to continue telehealth session Time Spent with Patient: Initial => 75 min History of Present Illness Reason for Consultation: persistent high fevers, LP pending Attending Physician: Ron Marin DO History of Present Illness 24yo M with h/o migraines, bicuspid aortic valve, SVT s/p ablation in 2016 who presented on 11/21 with severe headaches and fever. He initially had high grade fevers 10 days ago with Tmax 104. Headaches started a few days prior reported as throbbing, more severe when he stands up and changes position. He had seen his family in [place] on 11/16 and went to urgent care due to the severe headache and then twice on 11/19. He was given a migraine cocktail that helped, negative workup including Lyme and viral panel. On day of presentation, he again had very severe headaches, especially when he stands so went to urgent care. He was given 1 dose of augemntin and discharged home however he decided to come to the ED. No rashes, joint pain, vomiting, blurred vision. Denied sick contacts. In the ED, he was febrile to 39, vss. Initial labs with WBC 10.72, Cr wnl. AST 47, Cr 59. ESR 7, PCT < 0.02. RPP +rhino/enterovirus. Anaplasma and babesia smear neg, PCR pending. Lyme negative. CXR neg. CTH with chronic sinusitis. BCX in process. He was started on vanc/CTX/ACV with decadron. Attempted LP in ED but multiple failed attempts and plans for LP with IR. FAVIAN consulted 11/22. On evaluation, patient reports that the fevers and headache started around the same time. His headaches feel different from his regular migraines and notes that it wraps around his head, worse with standing up. He notes fevers every day that are up to 101-102 and are reduced with Tylenol or ibuprofen. He denies having any sick contacts. 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 He has been in a monogamous relationship for 2 years with his girlfriend, with whom he is sexually active with, no condom use. Denies any penile discharge, rashes or lesions. He traveled to [place] in July but otherwise no other travel out of [facility]. He does visit his parents in [place]. No pets aside from a dog in [place] who he saw after he was already sick. No exposures on campus to animals. He does not go hiking or any outdoors activities including gardening or lawn care. Denies any tick or other bug bites. Has not had any recent URI symptoms including cough, sore throat, runny nose. No back pain, abdominal pain, diarrhea, bloody stools, joint pains/swelling, mouth sores, dental concerns, chest pain, SOB. Allergies Allergy/AdvReac Type Severity Reaction Status Date / Time No Known Allergies Allergy Unverified 11/21/24 10:32 Home Medications Medication Instructions Recorded Confirmed Type amoxicillin 875 mg tablet 875 mg PO BID 10 days #20 tabs 11/21/24 11/21/24 Rx Patient History Medical History Bicuspid aortic valve SVT (supraventricular tachycardia) Social History Smoking Status: Never smoker Tobacco Type: Smokeless Tobacco (Dip or Chew) Cigarettes Per Day: Zyn pouches; Hx Alcohol Use: Yes Alcohol type: beer Hx Substance Use: No Preferred Language: Mohawk Karate Black Belt Required: No Beliefs That Will Affect Care: None Current Living Situation: Other Current Living Situation Comment: college apartment with roommates Feels Safe at Home: Yes Safety Concerns: Feels Safe At This Time Assistive Devices: Glasses Review of System 10-point review of systems reviewed and are negative except for as above. Physical Exam Physical Exam: General: Awake, alert, no acute distress HEENT: NC/AT, EOMI, mmm, no lesions, good dentition Neck: supple, no cervical LAD Lungs: CTA bl, no w/c/r Heart: regular, nl S1/S2 Abdomen: soft, NT/ND Back: no spinal tenderness Ext: no LE edema, no LAD in axilla Skin: no rash Neuro: moving all extremities Results & Data Vital Signs (Past 12 Hours) Vital Signs Temp Pulse Pulse Pulse Resp BP BP 11/22/24 07:31 37.3 C 62 16 125/75 11/22/24 01:01 37.6 C H 11/21/24 22:45 38.3 C H 83 16 11/21/24 21:17 80 18 11/21/24 21:03 86 25 H 11/21/24 21:01 133/74 11/21/24 20:57 96 H 21 11/21/24 20:54 68 27 H BP Pulse Ox O2 Del Method 11/22/24 07:31 95 Room Air 11/22/24 01:01 11/21/24 22:45 147/80 H 96 Room Air 11/21/24 21:17 125/68 98 Room Air 11/21/24 21:03 11/21/24 21:01 11/21/24 20:57 99 Room Air 11/21/24 20:54 99 Room Air Laboratory Results Labs reviewed. Diagnostic Findings Imaging reviewed. (1) Fever Fever type: unspecified Qualified Code(s): R50.9 - Fever, unspecified (2) Headache Headache chronicity pattern: acute headache Headache type: unspecified Intractability: intractable Qualified Code(s): R51.9 - Headache, unspecified
[2024-11-22] MEDS: FAMOTIDINE 20MG IV PUSH 20 MG/5 ML SYR IV SCH (09:08)
[2024-11-22 09:53] LABS: Appearance Urine Clear (Clear); Bilirubin Urine Negative (Negative); Blood Urine Negative (Negative); Color Urine Yellow; Glucose Urine UA Negative (Negative); Ketones Urine Negative (Negative); Leukocyte Esterase Urine Negative (Negative); Nitrite Urine Negative (Negative); Protein Urine Negative (Negative); Specific Gravity Urine 1.008 (1.000-1.030); Urobilinogen Urine Negative (Negative); pH Urine 6.5 (4.5-7.5)
[2024-11-22 14:47] LABS: Appearance CSF Hazy; CSF Count Tube # 3; CSF Xanthrochromic No xanthochromia; Color CSF Colorless; Mononuclear WBC CSF Auto 95.6 %; Polynuclear WBC CSF Auto 4.4 %; White Blood Cell CSF Auto 1395 /uL (0-5)
[2024-11-22 14:52] LABS: Total Protein CSF 46.9 mg/dl (15-45)
[2024-11-22 15:05] LABS: Red Blood Cell CSF Manual 20 (0)
--- NOTE | 2024-11-22 15:32 | Fluoroscopy Report ---
LUMBAR PUNCTURE UNDER FLUOROSCOPY CLINICAL HISTORY: Fever/headache PROCEDURE: Procedure and risks were explained. Informed consent was obtained. A final timeout was com pleted. The patient was placed prone on the fluoroscopic exam table. The lower lumbar region was prep ped and draped in sterile fashion. 1% lidocaine was utilized for skin anesthesia. Utilizing fluoroscopic guidance, a 22-gauge Sprotte spinal needle was advanced into the intrathecal s pace at the L3-4 disc space level. Fluoroscopic spot images were obtained. Approximately 10 mL of uday udy CSF fluid was removed and sent to lab for analysis. The needle was removed and Band-Aid applied. The patient tolerated the procedure well. Vital signs will be monitored postprocedure. Fluoroscopy time 16 seconds. Study dosed 16.93 mGy. IMPRESSION: Lumbar puncture as above. Performed, dictated, and signed by Umer Logan PA-C; to be co-signed by Dr. Puneet Fay. Electronically signed by: Puneet Fay M.D. 11/22/2024 4:04 PM
[2024-11-22 16:03] LABS: Cryptococcus neoformans/ga PCR Not Detected (NotDetected); Cytomegalovirus PCR Not Detected (NotDetected); Escherichia coli K1 PCR Not Detected (NotDetected); Haemophilius influenzae PCR Not Detected (NotDetected); Herpes Simplex Virus 1 PCR Not Detected (NotDetected); Herpes Simplex Virus 2 PCR Not Detected (NotDetected); Human Herpes Virus 6 PCR Not Detected (NotDetected); Human Parechovirus PCR Not Detected (NotDetected); Listeria monocytogenes PCR Not Detected (NotDetected); Neisseria meningitidis PCR Not Detected (NotDetected); Streptococcus agalactiae PCR Not Detected (NotDetected); Streptococcus pneumoniae PCR Not Detected (NotDetected); Varicella Zoster Virus PCR Not Detected (NotDetected)
[2024-11-22 16:24] LABS: Enterovirus PCR DETECTED (NotDetected)
--- NOTE | 2024-11-22 16:39 | Billing Data ---
Date of Service November 22, 2024 Coding Level of Care Code 76878 SUB INP/OBS CARE
[2024-11-23 06:06] LABS: Basophils # (auto) 0.03 K/uL (0.00-0.20); Basophils % (auto) 0.2 %; Hematocrit (blood only) 42.1 % (42.0-52.0); Hemoglobin 14.6 g/dl (14.0-18.0); Immature Granulocytes # (auto) 0.32 K/uL (0.01-0.20); Immature Granulocytes % (auto) 2.3 %; Lymphocytes # (auto) 1.44 K/uL (1.20-3.40); Lymphocytes % (auto) 10.3 %; Mean Corpuscular Hemoglobin 29.9 pg (25.0-34.0); Mean Corpuscular Hgb Conc 34.7 g/dL (32.0-36.0); Mean Corpuscular Volume 86.1 fL (80.0-100.0); Mean Platelet Volume 8.6 fL (9.4-12.4); Monocytes # (auto) 0.88 K/uL (0.11-0.59); Monocytes % (auto) 6.3 %; Neutrophils # (auto) 11.26 K/uL (1.40-6.50); Neutrophils % (auto) 80.9 %; Platelet Count 283 K/uL (130-400); RDW Standard Deviation 37.9 fL (36.4-46.3); Red Blood Count 4.89 M/uL (4.70-6.10); White Blood Count 13.93 K/ul (4.8-10.8)
[2024-11-23 06:20] LABS: Albumin Globulin Ratio 1.8 (0.9-2); BUN Creatinine Ratio 15.7 (10-20); Bilirubin,Total 0.6 mg/dl (0.2-1.0); Calcium 9.2 mg/dl (8.6-10.3); Creatinine Clr Calc Pharmacy 157.8 ml/min; Globulin 2.2 gm/dl (2.5-4.0); Total Protein 6.2 gm/dl (6.0-8.3)
[2024-11-23] MEDS: VANCOMYCIN LEVEL ONE (07:23)
--- NOTE | 2024-11-23 07:50 | Infectious Disease Progress Nt ---
Date of Service November 23, 2024 Assessment & Plan (1) Enterovirus meningitis: (2) Fever: (3) Headache: Plan 24yo M with h/o migraines, bicuspid aortic valve, SVT s/p ablation in 2017 who presented on 11/21 with severe headaches and fever x 10 days. In the ED, he was febrile to 39, vss. Initial labs with WBC 10.72, Cr wnl. AST 47, Cr 59. ESR 7, PCT < 0.02. RPP +rhino/enterovirus. Anaplasma and babesia smear neg, PCR pending. Lyme negative. CXR neg. CTH with chronic sinusitis. BCX ngtd. He was started on vanc/CTX/ACV with decadron. Attempted LP in ED but multiple failed attempts and plans for LP with IR. ID consulted 11/22. S/p LP 11/22. CSF WBC 1395, predominantly mono, glucose 92, protein 46. CSF gram stain neg. ME panel +enterovirus. Enterovirus is one of the more common causes of viral meningitis and can be transmitted via fecal-oral route or through respiratory secretions. Treatment is supportive. Lillian therefore stopped acyclovir. CSF studies are not consistent with bacterial infection, gram stain is also negative, so Lillian also stopped antibiotics. Enteroviruses are contagious and household contacts should be advised to practice good hand hygiene. # Enterovirus meningitis # Fever, headaches - f/u HIV screen - f/u all CSF studies - f/u BCX - Lillian stopped vanc, CTX and acyclovir - supportive care for enterovirus - encourage hand hygiene and respiratory etiquette - avoid close contact particularly with those who are immunocompromised - may return to work/school once fever-free for at least 24hrs and feels well enough to return - f/u with PCP Will discontinue active follow up at this time. Please do not hesitate to reconsult the Infectious Diseases service as needed. Kika Aguilar MD [facility], Division of Infectious Diseases [employer]Connect: [phone] Admission and Anticipated Discharge Date Admission Date: November 21, 2024 Subjective This patient recommendation is based on a telemedicine consult request which was completed asynchronously through chart review and information provided by the primary physician. The patient was not seen or examined today. The evaluation is consultative in nature and all patient care and treatment decisions can either be accepted or rejected by the patient's primary hospital-based treating physician using their own independent medical judgment for their patient. Time Spent Reviewing Chart: 31+ minutes CSF studies with enterovirus Results & Data Vital Signs (Past 12 Hours) Vital Signs Temp Pulse Resp BP Pulse Ox O2 Del Method 11/23/24 07:13 36.3 C L 46 L 16 116/71 98 Room Air Laboratory Results Labs reviewed. (2) Fever Fever type: unspecified Qualified Code(s): R50.9 - Fever, unspecified (3) Headache Headache chronicity pattern: acute headache Headache type: unspecified Intractability: intractable Qualified Code(s): R51.9 - Headache, unspecified
--- NOTE | 2024-11-23 16:12 | Hospitalist Progress Note ---
Date of Service November 23, 2024 Assessment & Plan (1) Rhinovirus: (2) Elevated liver enzymes: (3) Bicuspid aortic valve: (4) Headache: (5) Fever: Plan Puneet is 24 Y O with PMH of Migraine, Bicuspid Aortic Valve and h/o SVT presented to ER with severe headaches and fever for 10 days, admitted to R/O meningitis after failed multiple LP attempts in ED. #Viral meningitis -Patient presented to ED with fever and headache for 10 days - Labs: CBC unremarkable Elevated neutrophils CSF WBC:1395; glucose: slight elevated; Protein: slightly above normal; PCR enterovirus Procal : Negative; Lactate normal [place]: negative CMP: Liver enzymes mild elevated UA: Negative Respiratory Biofire test positive for entero/Rhinovirus Chest Xray: Normal findings CT head: No acute abnormalities, suggestive of chronic sinusitis Blood culture: pending lyme test: negative Anaplasma, babesia : Negative; PCR pending -- Improving. Feels good today. We discussed hospital discharge versus ongoing observationbecause he felt better the day he got a "migraine cocktail" but then the next day everything rebounded terribly, he would like to be observed into tomorrow to ensure his improvement continues, which is quite reasonable. Discussed if his headache worsens to have nursing call us right away so that we can get on it with treatment, and otherwise as long as he continues to feel well tomorrow, likely discharge in the morning. Other chronic issues: 1. Bicuspid aortic valve: congenital, no s/o heart failure. Continue f.u with cardiology in outpatient. 2. H/O SVT: S/P ablation procedure in 2017, no recurrent Sx. Dispo: stable on medical DVT prophylaxis: Not needed, Encourage ambulation Code Status: Full. Admission and Anticipated Discharge Date Admission Date: November 21, 2024 Subjective feeling better. Headache much improved. Headache probably 23 out of 10. Able to walk around without worsening of headache. Able to walk and be upright without headache or dizziness. No fevers thus far today. Ate well. Dad at the bedside. Updated the best my ability and his satisfaction. Review of Systems Review of Systems: All systems reviewed & are unremarkable except as noted in HPI & below Physical Exam Physical Exam: In general he is awake alert oriented x 3 pleasant no distress. HEENT normocephalic atraumatic mucous membranes moist. Breathing unlabored no accessory muscle use good effort. Skin without rashes pallor or icterus. Neuro without focal deficits. Results & Data Results & Data Vital Signs (Past 12 Hours) Vital Signs Temp Pulse Resp BP Pulse Ox O2 Del Method 11/23/24 14:39 97.7 F 51 L 16 114/70 99 Room Air 11/23/24 07:13 97.3 F L 46 L 16 116/71 98 Room Air PG Care Time/CCT Total # of Minutes Spent Total Time Spent with Patient: Total time spent is greater than 50% in coordination of care (as documented) at patient's floor/unit and/or counseling patient: Coding Level of Care Code 02232 SUB INP/OBS CARE 3/50MIN Diagnoses Rhinovirus B34.8 Elevated liver enzymes R74.8 Bicuspid aortic valve Q23.81 Headache R51.9 Headache chronicity pattern: acute headache Headache type: unspecified Intractability: intractable Fever R50.9 Fever type: unspecified (4) Headache Headache chronicity pattern: acute headache Headache type: unspecified I ntractability: intractable Qualified Code(s): R51.9 - Headache, unspecified (5) Fever Fever type: unspecified Qualified Code(s): R50.9 - Fever, unspecified
--- NOTE | 2024-11-23 17:45 | Hospitalist Progress Note ---
Date of Service November 23, 2024 Assessment & Plan (1) Rhinovirus: (2) Elevated liver enzymes: (3) Bicuspid aortic valve: (4) Headache: (5) Fever: Plan Puneet is 24 Y O with PMH of Migraine, Bicuspid Aortic Valve and h/o SVT presented to ER with severe headaches and fever for 10 days, admitted to R/O meningitis after failed multiple LP attempts in ED. #Viral meningitis -Patient presented to ED with fever and headache for 10 days - Labs: CBC unremarkable Elevated neutrophils CSF WBC:1395; glucose: slight elevated; Protein: slightly above normal; PCR positive for enterovirus Procal : Negative; Lactate normal [place]: negative CMP: Liver enzymes mild elevated UA: Negative Respiratory Biofire test positive for Rhinovirus Chest Xray: Normal findings CT head: No acute abnormalities, suggestive of chronic sinusitis Blood culture: pending lyme test: negative Anaplasma, babesia : Negative; PCR pending -Discontinue Dexamethasone - Nephrology recommended.Discontinue Ceftriaxone and vancomycin. -Discontinue Acyclovir -Patient is afebrile and stable clinically. Gave option to go home today, but he wanted to stay for one more day to see for rebound headache. Hopefully back tomorrow if remains afebrile and clinically stable #Rhinovirus positive status - Respiratory Biofire positive for rhinovirus - Denies URI symptoms. Continue supportive measures Other chronic issues: 1. Bicuspid aortic valve: congenital, no s/o heart failure. Continue f.u with cardiology in outpatient. 2. H/O SVT: S/P ablation procedure in 2017, no recurrent Sx. Dispo: Admit in med/ surg Tele. DVT prophylaxis: Not needed, Encourage ambulation Code Status: Full. Admission and Anticipated Discharge Date Admission Date: November 21, 2024 Subjective Feeling much better. Headache much improved. Headache probably 23 out of 10. Able to walk around without worsening of headache. Able to walk and be upright without headache or dizziness. No fevers thus far today. Ate well. Dad at the bedside. Updated the best my ability and his satisfaction. Review of Systems Review of Systems: As per HPI Constitutional: no malaise Eyes: + loss of peripheral vision and + tunnel vision; no blind spots, no diplopia, no eye pain, no photophobia and no worsening vision Ear, Nose, Mouth, Throat: no ear pain, no ear discharge, no nasal congestion, no nasal obstruction and no dysphagia Respiratory: no cough, no chest congestion, no dyspnea, no dyspnea on exertion and no pain on inspiration Cardiovascular: no chest pain, no chest pain with activity, no dyspnea, no orthopnea and no palpitations Gastrointestinal: no abdominal pain, no bloating and no vomiting Genitourinary: no dysuria, no difficulty urinating, no urinary hesitancy, no penile discharge or no urinary urgency Musculoskeletal: no neck pain, no stiffness, no muscle weakness and no body aches Integumentary: no rash, no lesions and no unusual bruising Neurologic: no gait abnormality, no unsteadiness and no paresthesia Psychiatric: no behavioral changes Allergy / Immunological: + seasonal rhinorrhea Physical Exam Constitutional: WD/WN, vitals as above well developed; no acute distress Eyes: PERRL, conjunctivae normal, anicteric sclerae ENMT: external ear and nose normal, oropharynx normal Ears: no hearing impairment Neck: trachea midline, no thyromegaly (Kernigs sign negative, Brudzinski sign negative) Respiratory: normal respiratory effort, lungs clear to auscultation normal respiratory effort and + respiratory distress; no labored breathing and no retractions Auscultation: lungs clear to auscultation bilaterally Cardiovascular: RRR, no murmur, no edema Rate/Rhythm: regular rate and regular rhythm Chest (Breasts): normal inspection/palpation of breasts Chest: normal inspection of chest Results & Data Results & Data Vital Signs (Past 12 Hours) Vital Signs Temp Pulse Resp BP Pulse Ox O2 Del Method 11/23/24 07:13 36.3 C L 46 L 16 116/71 98 Room Air (4) Headache Headache chronicity pattern: acute headache Headache type: unspecified Intractability: intractable Qualified Code(s): R51.9 - Headache, unspecified (5) Fever Fever type: unspecified Qualified Code(s): R50.9 - Fever, unspecified
[2024-11-24 07:08] LABS: Basophils # (auto) 0.05 K/uL (0.00-0.20); Basophils % (auto) 0.5 %; Eosinophils # (auto) 0.01 K/uL (0.00-0.50); Eosinophils % (auto) 0.1 %; Hematocrit (blood only) 40.7 % (42.0-52.0); Hemoglobin 14.3 g/dl (14.0-18.0); Immature Granulocytes # (auto) 0.44 K/uL (0.01-0.20); Immature Granulocytes % (auto) 4.3 %; Lymphocytes # (auto) 3.74 K/uL (1.20-3.40); Lymphocytes % (auto) 36.2 %; Mean Corpuscular Hemoglobin 30.2 pg (25.0-34.0); Mean Corpuscular Hgb Conc 35.1 g/dL (32.0-36.0); Mean Platelet Volume 8.6 fL (9.4-12.4); Monocytes # (auto) 0.79 K/uL (0.11-0.59); Monocytes % (auto) 7.6 %; Neutrophils # (auto) 5.31 K/uL (1.40-6.50); Neutrophils % (auto) 51.3 %; Platelet Count 259 K/uL (130-400); RDW Coefficient of Variation 12.2 % (11.5-14.5); RDW Standard Deviation 38.5 fL (36.4-46.3); Red Blood Count 4.73 M/uL (4.70-6.10); White Blood Count 10.34 K/ul (4.8-10.8)
[2024-11-24 07:18] LABS: Creatinine Clr Calc Pharmacy 137.7 ml/min
--- NOTE | 2024-11-24 07:26 | Hospitalist Progress Note ---
Date of Service November 24, 2024 Assessment & Plan (1) Rhinovirus: (2) Elevated liver enzymes: (3) Bicuspid aortic valve: (4) Headache: (5) Fever: Plan Puneet is 24 Y O with PMH of Migraine, Bicuspid Aortic Valve and h/o SVT presented to ER with severe headaches and fever for 10 days, admitted to R/O meningitis after failed multiple LP attempts in ED. #Viral meningitis -Patient presented to ED with fever and headache for 10 days -Discontinue Dexamethasone - Nephrology recommended.Discontinue Ceftriaxone and vancomycin. -Discontinue Acyclovir -Rebound headache after midnight. Magnesium 1gm stat given -H/o Migraine. Depakote 500 IV stat. - Scheduled Magnesium Oxide PO BID, Depakote 500mg IV HS and Phenergan 25mg PO q4hr PRN - Will monitor clinical improvement tomorrow. Upon discharge, may need regimen for migraine. #Rhinovirus positive status - Respiratory Biofire positive for rhinovirus - Denies URI symptoms. Continue supportive measures Other chronic issues: 1. Bicuspid aortic valve: congenital, no s/o heart failure. Continue f.u with cardiology in outpatient. 2. H/O SVT: S/P ablation procedure in 2017, no recurrent Sx. Dispo: Admit in med/ surg Tele. DVT prophylaxis: Not needed, Encourage ambulation Code Status: Full. Admission and Anticipated Discharge Date Admission Date: November 21, 2024 Subjective Rebound headache. Started at 3:00 AM. Rate 7-8/10. Relieved with IV Magnesium. One episode of fever. Got Tylenol and afebrile after that. Chills+. Denies other concerns Review of Systems Review of Systems: As per HPI Constitutional: no malaise Eyes: + loss of peripheral vision and + tunnel vision; no blind spots, no diplopia, no eye pain, no photophobia and no worsening vision Ear, Nose, Mouth, Throat: no ear pain, no ear discharge, no nasal congestion, no nasal obstruction and no dysphagia Respiratory: no cough, no chest congestion, no dyspnea, no dyspnea on exertion and no pain on inspiration Cardiovascular: no chest pain, no chest pain with activity, no dyspnea, no orthopnea and no palpitations Gastrointestinal: no abdominal pain, no bloating and no vomiting Genitourinary: no dysuria, no difficulty urinating, no urinary hesitancy, no penile discharge or no urinary urgency Musculoskeletal: no neck pain, no stiffness, no muscle weakness and no body aches Integumentary: no rash, no lesions and no unusual bruising Neurologic: no gait abnormality, no unsteadiness and no paresthesia Psychiatric: no behavioral changes Allergy / Immunological: + seasonal rhinorrhea Physical Exam Constitutional: WD/WN, vitals as above well developed; no acute distress Eyes: PERRL, conjunctivae normal, anicteric sclerae ENMT: external ear and nose normal, oropharynx normal Ears: no hearing impairment Neck: trachea midline, no thyromegaly (Kernigs sign negative, Brudzinski sign negative) Respiratory: normal respiratory effort, lungs clear to auscultation normal respiratory effort and + respiratory distress; no labored breathing and no retractions Auscultation: lungs clear to auscultation bilaterally Cardiovascular: RRR, no murmur, no edema Rate/Rhythm: regular rate and regular rhythm Chest (Breasts): normal inspection/palpation of breasts Chest: normal inspection of chest Results & Data Results & Data Vital Signs (Past 12 Hours) Vital Signs Temp Pulse Resp BP BP Pulse Ox O2 Del Method 11/24/24 07:23 36.7 C 55 L 16 110/67 98 Room Air 11/24/24 03:45 36.7 C 11/24/24 03:07 37.6 C H 11/23/24 22:56 37.0 C 11/23/24 20:08 36.5 C 11/23/24 19:34 36.7 C 57 L 16 118/75 100 Room Air Resident Activity Tracking Resident Involvement: Resident Care Provided Care Provided: Adult Hospital Medicine (4) Headache Headache chronicity pattern: acute headache Headache type: unspecified Intractability: intractable Qualified Code(s): R51.9 - Headache, unspecified (5) Fever Fever type: unspecified Qualified Code(s): R50.9 - Fever, unspecified
[2024-11-24] MEDS: LACTATED RINGER'S 500 ML IV ONE (07:50)
[2024-11-24] MEDS: MAGNESIUM SULFATE / D5W 1 GM/100 ML BAG IV SCH (08:28)
[2024-11-24] MEDS: VALPROATE SOD 500 MG in DEXTROSE 5% 50 ML IV ONE (10:05)
--- NOTE | 2024-11-24 18:18 | Billing Data ---
Date of Service November 24, 2024 Coding Level of Care Code 26428 SUB INP/OBS CARE
[2024-11-24] MEDS: PROMETHAZINE HCL 25 MG TAB PO PRN (21:12)
[2024-11-24] MEDS: MAGNESIUM OXIDE 400 MG TAB PO SCH (21:12)
[2024-11-24] MEDS: VALPROATE SOD 500 MG in DEXTROSE 5% 50 ML IV SCH (21:17)
[2024-11-25 07:28] VITALS: RESP 18
--- NOTE | 2024-11-25 07:45 | Hospitalist Progress Note ---
Date of Service November 25, 2024 Assessment & Plan (1) Rhinovirus: (2) Elevated liver enzymes: (3) Bicuspid aortic valve: (4) Headache: (5) Fever: Plan Puneet is 24 Y O with PMH of Migraine, Bicuspid Aortic Valve and h/o SVT presented to ER with severe headaches and fever for 10 days, admitted to R/O meningitis after failed multiple LP attempts in ED. #Viral meningitis -Patient presented to ED with fever and headache for 10 days -Discontinue Dexamethasone - Nephrology recommended.Discontinue Ceftriaxone and vancomycin. -Discontinue Acyclovir -Rebound headache after midnight. Magnesium 1gm stat given -H/o Migraine. Depakote 500 IV stat. - Scheduled Magnesium Oxide PO BID, Depakote 500mg IV HS and Phenergan 25mg PO q4hr PRN - Will monitor clinical improvement tomorrow. Upon discharge, may need regimen for migraine. #Rhinovirus positive status - Respiratory Biofire positive for rhinovirus - Denies URI symptoms. Continue supportive measures Other chronic issues: 1. Bicuspid aortic valve: congenital, no s/o heart failure. Continue f.u with cardiology in outpatient. 2. H/O SVT: S/P ablation procedure in 2017, no recurrent Sx. Dispo: Admit in med/ surg Tele. DVT prophylaxis: Not needed, Encourage ambulation Code Status: Full. Admission and Anticipated Discharge Date Admission Date: November 24, 2024 Subjective Rebound headache. Started at 3:00 AM. Rate 7-8/10. Relieved with IV Magnesium. One episode of fever. Got Tylenol and afebrile after that. Chills+. Denies other concerns Review of Systems Review of Systems: As per HPI Constitutional: no malaise Eyes: + loss of peripheral vision and + tunnel vision; no blind spots, no diplopia, no eye pain, no photophobia and no worsening vision Ear, Nose, Mouth, Throat: no ear pain, no ear discharge, no nasal congestion, no nasal obstruction and no dysphagia Respiratory: no cough, no chest congestion, no dyspnea, no dyspnea on exertion and no pain on inspiration Cardiovascular: no chest pain, no chest pain with activity, no dyspnea, no orthopnea and no palpitations Gastrointestinal: no abdominal pain, no bloating and no vomiting Genitourinary: no dysuria, no difficulty urinating, no urinary hesitancy, no penile discharge or no urinary urgency Musculoskeletal: no neck pain, no stiffness, no muscle weakness and no body aches Integumentary: no rash, no lesions and no unusual bruising Neurologic: no gait abnormality, no unsteadiness and no paresthesia Psychiatric: no behavioral changes Allergy / Immunological: + seasonal rhinorrhea Physical Exam Constitutional: WD/WN, vitals as above well developed; no acute distress Eyes: PERRL, conjunctivae normal, anicteric sclerae ENMT: external ear and nose normal, oropharynx normal Ears: no hearing impairment Neck: trachea midline, no thyromegaly (Kernigs sign negative, Brudzinski sign negative) Respiratory: normal respiratory effort, lungs clear to auscultation normal respiratory effort and + respiratory distress; no labored breathing and no retractions Auscultation: lungs clear to auscultation bilaterally Cardiovascular: RRR, no murmur, no edema Rate/Rhythm: regular rate and regular rhythm Chest (Breasts): normal inspection/palpation of breasts Chest: normal inspection of chest Results & Data Results & Data Vital Signs (Past 12 Hours) Vital Signs Temp Pulse Resp BP BP Pulse Ox O2 Del Method 11/25/24 07:24 37.0 C 71 18 118/77 98 Room Air 11/24/24 21:18 37.7 C H 76 16 144/76 H 96 Room Air (4) Headache Headache chronicity pattern: acute headache Headache type: unspecified Intractability: intractable Qualified Code(s): R51.9 - Headache, unspecified (5) Fever Fever type: unspecified Qualified Code(s): R50.9 - Fever, unspecified
[2024-11-25 08:46] LABS: Basophils # (auto) 0.06 K/uL (0.00-0.20); Basophils % (auto) 0.7 %; Eosinophils # (auto) 0.04 K/uL (0.00-0.50); Eosinophils % (auto) 0.5 %; Hematocrit (blood only) 40.9 % (42.0-52.0); Hemoglobin 14.4 g/dl (14.0-18.0); Immature Granulocytes # (auto) 0.43 K/uL (0.01-0.20); Lymphocytes # (auto) 2.87 K/uL (1.20-3.40); Lymphocytes % (auto) 33.3 %; Mean Corpuscular Hemoglobin 29.9 pg (25.0-34.0); Mean Corpuscular Hgb Conc 35.2 g/dL (32.0-36.0); Mean Corpuscular Volume 84.9 fL (80.0-100.0); Mean Platelet Volume 8.5 fL (9.4-12.4); Monocytes # (auto) 0.79 K/uL (0.11-0.59); Monocytes % (auto) 9.2 %; Neutrophils # (auto) 4.44 K/uL (1.40-6.50); Neutrophils % (auto) 51.3 %; Platelet Count 276 K/uL (130-400); RDW Coefficient of Variation 12.2 % (11.5-14.5); RDW Standard Deviation 37.2 fL (36.4-46.3); Red Blood Count 4.82 M/uL (4.70-6.10); White Blood Count 8.63 K/ul (4.8-10.8)
--- NOTE | 2024-11-25 12:55 | Discharge Summary ---
Discharge Summary Date of Service November 25, 2024 Principal Dx & Hospital Course #1 = Principal Diagnosis (1) Rhinovirus: (2) Elevated liver enzymes: (3) Bicuspid aortic valve: (4) Headache: (5) Fever: Plan Puneet is 24 Y O with PMH of Migraine, Bicuspid Aortic Valve and h/o SVT presented to ER with severe headaches and fever for 10 days, admitted to R/O meningitis after failed multiple LP attempts in ED. #Viral meningitis -Presented after fever and headache for about 10 days. Was not getting better. Spinal tap consistent with viral meningitis. Infectious disease consult confirmed as well. - Medically quite stable, but unfortunately had quite significant headache to the point of being incapacitating at first. With more aggressive management (IV magnesium, IV Depakote, as needed Phenergan) the headache has now improved to where it is tolerable and he appears safe/stable for home - discussed with patient and family that right now it makes the most sense to manage as though the headache will persist until the inflammation improvesthe difficult part of that being predicting how quickly his [employer] inflammation will totally julius. Could be as short as a few more days, or as long as a few more weeks. Given that magnesium and Depakote as well as as needed Phenergan are helping, we will send him with prescriptions for magnesium oxide 400 mg twice daily, Depakote 500 mg nightly (discussed side effects and monitoring, but also discussed the fact that he will likely be on it for a very short period of time), as well as Phenergan as needed breakthrough migraine (discussed sedation/grogginess) - PCP follow-up next weekgoal to aggressively wean these medications as quickly as possible/get rid of them as soon as he no longer needs them - discussed anticipated recovery and self-care. Other chronic issues: 1. Bicuspid aortic valve: congenital, no s/o heart failure. Continue f.u with cardiology in outpatient. 2. H/O SVT: S/P ablation procedure in 2017, no recurrent Sx. Dispo: safe/stable for home Notes For Next Care Provider Medication Changes From Visit short term: mag ox 400mg bid, depakote 500mg HS, phenergan 25mg q4hr prn refractory headache (goal to wean as soon as possible) Admission HPI Per Admitting Provider Puneet is 23 yo healthy male with h/o Bicuspid aortic valve, SVTs S/P ablation done on 2016. He presented with severe headaches for few days, initially started with high grade fevers 10 days back. Initial 3 days, he did have fever only, max recorded 104 with no headaches, no URI Sx, No urine sx, no GI sx. Afterwards started having headaches, quite severe, throbbing type, more severe when he stands and changes position, but not when he rotates his head. He had visited family at [place] last Thursday, when he had severe headache, warranting him to go to urgent care. Migraine cocktail given there helped his headaches but he was suggested to take Tylenol at home, which did not help. Went to ED again on Thursday( 2 days back )-- blood works done-- revealed nothing. Lyme and viral panels were done, which was negative. This afternoon, he again had very severe headache, especially when he stands, not relieved at all with regular Tylenol, hence went to urgent care. They gave him Augmentin 1 dose and recommended discharge, however Puneet decided to visit our ED as HAs were very severe. Endorses h/o migraine in past, but headache were in frontal region. No regular or prophylactic medicine for migraine. No premonitory sx like nausea, blurring of vision in previous headache episodes and severity was very mild compared to current BARNES. No rashes anywhere, no joint pain, no vomiting, no blurring of vision. No h/o STDs, sexually active with single partner, No h/o use of Viagra. No h/o use of ointment for fissure. No h.o travel except from [place]. No known sick contact. After coming to ED, vitals were stable, with labs benign as well. CT head is unrevealing, Lumbar puncture was tried multiple times with failed attempts, hence Ceftriaxone was given STAT dose and our team was consulted. PMH: reviewed Drug and allergy : reviewed Code : Full Updated Medication List Medication Instructions Recorded Confirmed Type amoxicillin 875 mg tablet 875 mg PO BID 10 days #20 tabs 11/21/24 11/21/24 Rx Hospital Stay Data Consultations 11/21/24 19:15 ED Decision to Admit Stat 11/21/24 21:02 Consult Infectious Diseases Routine Diagnostic Imagining Performed 11/21/24 16:58 CT head/brain wo con Stat 11/22/24 13:30 IR lumbar puncture diagnostic Routine Total Time Total Time Spent Total Time Spent (In Minutes): <30
--- NOTE | 2024-11-25 12:55 | Billing Data ---
Date of Service November 25, 2024 Coding Level of Care Code 12145 IN/OBS DISCH 30 MIN/LESS
[2024-11-25 13:16] VITALS: BP 109/69; TEMP 97.9; O2SAT 100
[2024-11-25 13:41] VITALS: PULSE 80
--- NOTE | 2024-11-25 15:57 | Discharge Summary ---
Date of Service November 25, 2024 Admission HPI Per Admitting Provider Puneet is 23 yo healthy male with h/o Bicuspid aortic valve, SVTs S/P ablation done on 2016. He presented with severe headaches for few days, initially started with high grade fevers 10 days back. Initial 3 days, he did have fever only, max recorded 104 with no headaches, no URI Sx, No urine sx, no GI sx. Afterwards started having headaches, quite severe, throbbing type, more severe when he stands and changes position, but not when he rotates his head. He had visited family at [place] last Thursday, when he had severe headache, warranting him to go to urgent care. Migraine cocktail given there helped his headaches but he was suggested to take Tylenol at home, which did not help. Went to ED again on Thursday( 2 days back )-- blood works done-- revealed nothing. Lyme and viral panels were done, which was negative. This afternoon, he again had very severe headache, especially when he stands, not relieved at all with regular Tylenol, hence went to urgent care. They gave him Augmentin 1 dose and recommended discharge, however Puneet decided to visit our ED as HAs were very severe. Endorses h/o migraine in past, but headache were in frontal region. No regular or prophylactic medicine for migraine. No premonitory sx like nausea, blurring of vision in previous headache episodes and severity was very mild compared to current BARNES. No rashes anywhere, no joint pain, no vomiting, no blurring of vision. No h/o STDs, sexually active with single partner, No h/o use of Viagra. No h/o use of ointment for fissure. No h.o travel except from [place]. No known sick contact. After coming to ED, vitals were stable, with labs benign as well. CT head is unrevealing, Lumbar puncture was tried multiple times with failed attempts, hence Ceftriaxone was given STAT dose and our team was consulted. PMH: reviewed Drug and allergy : reviewed Code : Full Admission Exam Per Admitting Provider GENERAL: Patient is in no acute distress. HEENT: No acute trauma, normocephalic atraumatic, mucous membranes moist, no nasal congestion. No throat erythema or exudate. NECK: No stridor, no adenopathy, no meningismus, trachea is midline. LUNGS: Clear to auscultation bilaterally, no wheeze, no rhonchi, breath sounds equal. HEART: Mildly tachycardic, subtle systolic murmur, regular rhythm. ABDOMEN: Soft, nontender, no peritonitis. EXTREMITIES: No cyanosis, full range of motion of all the joints without pain or difficulty. NEUROLOGIC: Oriented x 3, no acute motor or sensory deficits, no focal weakness. SKIN: No jaundice, no diaphoresis. Principal Diagnosis Viral Meningitis Discharge Exam Constitutional WD/WN, vitals as above well developed; no acute distress Eyes PERRL, conjunctivae normal, anicteric sclerae ENMT external ear and nose normal, oropharynx normal Ears: no hearing impairment Neck trachea midline, no thyromegaly (Kernigs sign negative, Brudzinski sign negative) Respiratory normal respiratory effort, lungs clear to auscultation normal respiratory effort and + respiratory distress; no labored breathing and no retractions Auscultation: lungs clear to auscultation bilaterally Cardiovascular RRR, no murmur, no edema Rate/Rhythm: regular rate and regular rhythm Chest (Breasts) normal inspection/palpation of breasts Chest: normal inspection of chest Discharge Data Allergies Allergy/AdvReac Type Severity Reaction Status Date / Time No Known Allergies Allergy Unverified 11/21/24 10:32 Consultations 11/21/24 19:15 ED Decision to Admit Stat 11/21/24 21:02 Consult Infectious Diseases Routine Ordered Studies 11/21/24 16:58 CT head/brain wo con Stat 11/22/24 13:30 IR lumbar puncture diagnostic Routine Hospital Course (1) Rhinovirus: (2) Elevated liver enzymes: (3) Bicuspid aortic valve: (4) Headache: (5) Fever: Will Teixeira is 24 Y O with PMH of Migraine, Bicuspid Aortic Valve and h/o SVT presented to ER with severe headaches and fever for 10 days, admitted to R/O meningitis after failed multiple LP attempts in ED. #Viral meningitis -Stable overnight. Mild headache only - Continue Magnesium Oxide PO BID, Depakote 500mg PO HS and Phenergan 25mg PO q4hr PRN until the headache goes away - Follow up with next week outpatient. #Rhinovirus positive status - Respiratory Biofire positive for rhinovirus - Denies URI symptoms. Continue supportive measures Other chronic issues: 1. Bicuspid aortic valve: congenital, no s/o heart failure. Continue f.u with cardiology in outpatient. 2. H/O SVT: S/P ablation procedure in 2017, no recurrent Sx. Total Time Total Time Spent Total Time Spent (In Minutes): See attending attestation Discharge Plan Discharge Items Patient Disposition: Home - Self-Care Reason For Visit: FEVER, SEVERE HEADACHE Discharge Diagnosis: Viral meningitis Condition on Discharge: Fair Activity: Per Instructions section Non-emergency contact: Primary Care Provider Call non-emergency contact if: you have any medication questions and your symptoms worsen Follow-up/Referrals: [facility] [Primary Care Provider] - 11/28/24 2:40 pm Diet: Regular Addtl Attending Provider Instructions: You presented to Emergency with Headache and fever for 10 days. Lumbar puncture was done and it revealed you have Viral Meningitis. As we discussed in our stay, treatment for viral meningitis in supportive care which will resolve on its own. It will take some time for headache to go away.On our assessment today, you are stable to go back home. We have added medications for headache to take at home. A discharge summary will be sent to your primary care physician to ensure continuity of care. Please bring this discharge summary with you to your next office appointment so that your provider can review it at that time. Follow-up appointments: We have requested a follow-up appointment with Dr Brewer for this coming . You will be hearing from our team soon Keep all your follow-up appointments as already scheduled. If you cannot make an appointment, notify your provider. Medications: Your medication list has been reviewed and reconciled upon discharge to ensure accuracy and continuity of care. An updated list of all your medications is included with your hospital discharge paperwork. Please review this list closely, and make note of any changes. We sent a new medication called Magnesium to your pharmacy. Take Magnesium 400mg BID until your headache completely goes away We sent a new medication called Depakote to your pharmacy. Take Depakote 500 mg HS until your headache goes completely We have sent a new medication called Promethazine to your pharmacy . Take promethazine as needed if your headache not controlled with above medicine If you have any issues filling these prescriptions, please call [phone] and ask to leave a message for Dr. Eulogio Brewer Take your medications as instructed; do not skip a dose of your medicines. Make sure all of your doctors know every medicine you are taking (including [id number] medicines, vitamins, and supplements). Call your primary care provider before taking any new medicines (including overthe- counter medicines, vitamins, and supplements), because some of these may interact with your current medications, or may make your symptoms worse. Tell your primary care provider if you cannot afford your medications. CONTACT YOUR PRIMARY CARE PROVIDER if you experience any of the following: Severe headache ; high grade fever Difficulty following your treatment plan, or difficulty taking medications CALL 911 OR GO TO THE EMERGENCY DEPARTMENT if you experience any of the following: Sudden, severe abdominal pain or nausea/vomiting Severe chest pain, or chest pain that radiates (moves) to your jaw or arm Sudden, severe shortness of breath or difficulty breathing Thank you for allowing us to participate in your care. . Pending Studies at Discharge: No Stand-Alone Forms: [facility] [employer], Work/School Release, Smoking Cessation Medications and DC Order Prescriptions: New magnesium oxide 400 mg (241.3 mg magnesium) Tablet 400 mg PO BID 30 Days Qty: 60 0RF promethazine 25 mg Tablet 25 mg PO Q4H PRN (Reason: headache) Qty: 14 0RF divalproex [Depakote] 500 mg tablet,delayed release (DR/EC) 500 mg PO HS Qty: 30 0RF Discontinued amoxicillin 875 mg tablet 875 mg PO BID 10 Days Qty: 20 0RF Discharge Orders: Discharge Order (Routine); Ordered 11/25/24 Ordered By: Eulogio Brewer Admission Data Admit Date/Time: 11/24/24 16:49 Attending Provider: Ron Marin Admit Provider: Ron Marin Primary Care Provider: [facility] Other Providers: José Miguel Amaral Other Interventions: Discharge Summary Assessment (RN) Last Done: 11/25/24 13:41 Resident Activity Tracking Resident Involvement: Resident Care Provided Care Provided: Adult Hospital Medicine
[2024-11-25 19:47] LABS: Babesia microti DNA Not Detected (Not Detected)
== END 2024-11-25 15:03 | disposition home or self-care (01) | DRG 76 ==
LOC: SUATTDRO → ED 15:35 → 3E 15:35 → SUATTDRO 20:08 → 3E 21:29
DX: B34.8 Other viral infections of unspecified site; A87.9 Viral meningitis, unspecified; Z11.52 Encounter for screening for COVID-19; Q23.81 Bicuspid aortic valve; Z86.79 Personal history of other diseases of the circulatory system; G43.909 Migraine, unspecified, not intractable, without status migrainosus